=== PATIENT | male | born 1995 | race Caucasian/White ===

== ENCOUNTER 2024-06-30 17:58 | Emergency (ER) | payer OTHER ==
[~2024-06-30] VITALS: Ht 182.9 cm; Wt 109.0 kg
[2024-06-30 18:12] VITALS: BP 150/79; PULSE 70; RESP 16; O2SAT 99
[2024-06-30] MEDS: ACETAMINOPHEN 325MG TABLET PO ONE (20:00)
== END 2024-06-30 20:30 | disposition left against medical advice (07) ==
LOC: ER 17:58
DX: M25.551 Pain in right hip (principal); S09.8XXA Other specified injuries of head, initial encounter; X58.XXXA Exposure to other specified factors, initial encounter; Y93.89 Activity, other specified; Y92.89 Other specified places as the place of occurrence of the external cause; Y99.8 Other external cause status
CPT/HCPCS: 73502; 99284